=== PATIENT | female | born 1950 | race Caucasian/White ===

== ENCOUNTER 2019-09-22 09:02 | Outpatient (CLI) | payer MEDICARE, OTHER, SELFPAY ==
[2019-09-22 09:36] LABS: Anion Gap 15.1 (5-19); Blood Urea Nitrogen 21 mg/dL (8-23); Calcium 10.4 mg/dL (8.5-10.5); Carbon Dioxide 26 mmol/L (22-29); Chloride 96 mmol/L (98-107); Glomerular Filtration Rate 34.3 mL/min (90-130); Glucose 98 mg/dL (65-115); Osmolality Calculated 271 mOsm/kg (285-295); Potassium 5.1 mmol/L (3.5-5.1); Sodium 132 mmol/L (136-145)
== END 2019-09-22 09:03 | disposition home or self-care (01) ==
LOC: LAB 09:08
PROVIDERS: Family Provider Nurse Practitioner; PCP Nurse Practitioner; Visit Provider Internal Medicine
DX: Z94.1 Heart transplant status (principal)
CPT/HCPCS: 36415; 80048; 80197

== ENCOUNTER 2019-10-31 08:10 | Outpatient (CLI) | payer MEDICARE, OTHER, SELFPAY ==
[2019-10-31 08:58] LABS: Anion Gap 16.7 (5-19); Blood Urea Nitrogen 19 mg/dL (8-23); Calcium 11.4 mg/dL (8.5-10.5); Carbon Dioxide 28 mmol/L (22-29); Chloride 96 mmol/L (98-107); Glomerular Filtration Rate 49.1 mL/min (90-130); Glucose 92 mg/dL (65-115); Osmolality Calculated 278 mOsm/kg (285-295); Potassium 4.7 mmol/L (3.5-5.1); Sodium 136 mmol/L (136-145)
== END 2019-10-31 08:11 | disposition home or self-care (01) ==
LOC: LAB 08:17
PROVIDERS: Family Provider Nurse Practitioner; PCP Nurse Practitioner; Visit Provider Internal Medicine
DX: Z94.1 Heart transplant status (principal)
CPT/HCPCS: 36415; 80048; 80197

== ENCOUNTER 2019-11-24 09:07 | Outpatient (CLI) | payer MEDICARE, OTHER, SELFPAY ==
[2019-11-24 10:08] LABS: Basophils % 0.4 %; Eosinophils # 0.4 10^3/uL (0.0-0.8); Eosinophils % 5.9 %; Hematocrit 43.1 % (37.0-47.0); Hemoglobin 14.1 g/dL (11.5-15.3); Lymphocytes # 2.3 10^3/uL (0.8-4.8); Lymphocytes % 32.3 %; Mean Corpuscular HGB Conc 32.7 g/dL (30.0-36.0); Mean Corpuscular Hemoglobin 30.1 pg (28.0-34.0); Mean Corpuscular Volume 92.1 fL (81-99); Mean Platelet Volume 9.4 fL (7.4-10.4); Monocytes # 0.7 10^3/uL (0.2-0.9); Monocytes % 9.4 %; Neutrophils # 3.7 10^3/uL (1.8-7.7); Neutrophils % 51.7 %; Nucleated Red Blood Cells % 0 %; Platelet Count 262 10^3/cmm (130-400); Red Blood Count 4.68 10^6/uL (4.1-5.3); Red Cell Distribution Width 13.1 % (12.1-15.1); White Blood Count 7.2 10^3/uL (4.0-10.0)
[2019-11-24 10:20] LABS: Anion Gap 18.5 (5-19); Blood Urea Nitrogen 15 mg/dL (8-23); Calcium 10.2 mg/dL (8.5-10.5); Carbon Dioxide 25 mmol/L (22-29); Chloride 95 mmol/L (98-107); Glomerular Filtration Rate 44.4 mL/min (90-130); Glucose 103 mg/dL (65-115); Osmolality Calculated 275 mOsm/kg (285-295); Potassium 4.5 mmol/L (3.5-5.1); Sodium 134 mmol/L (136-145)
== END 2019-11-24 09:08 | disposition home or self-care (01) ==
LOC: LAB 09:13
PROVIDERS: Family Provider Nurse Practitioner; PCP Nurse Practitioner; Visit Provider Internal Medicine
DX: Z48.21 Encounter for aftercare following heart transplant (principal); Z94.1 Heart transplant status; Z79.899 Other long term (current) drug therapy; N28.9 Disorder of kidney and ureter, unspecified
CPT/HCPCS: 36415; 80048; 80197; 85025

== ENCOUNTER 2020-02-01 11:30 | Outpatient (CLI) | payer MEDICARE, OTHER, SELFPAY ==
--- NOTE | 2020-02-01 11:43 | MM_ITS ---
WS: [id number] BILATERAL DIGITAL SCREENING MAMMOGRAPHY WITH CAD CLINICAL INFORMATION: SCREENING HISTORY: Screening mammogram. No current complaints. COMPARISON: TECHNIQUE: Bilateral CC and MLO views. FINDINGS: The breasts are composed of heterogeneous fibroglandular density tissue, which can limit the detectio n of small underlying mass lesions. No suspicious mass, asymmetry, calcifications, or architectural d istortion. No evidence of malignancy. Lucent centered calcifications. MM/[id number] IMPRESSION: BI-RADS: 2-Benign FOLLOW UP: 1 Year Follow-up Recommend return to annual screening mammography.
== END 2020-02-01 11:31 | disposition home or self-care (01) ==
LOC: RADSHAW 11:35
PROVIDERS: PCP Nurse Practitioner; Visit Provider Nurse Practitioner
DX: Z12.31 Encounter for screening mammogram for malignant neoplasm of breast (principal)
CPT/HCPCS: 77067

== ENCOUNTER 2020-02-16 08:56 | Outpatient (CLI) | payer MEDICARE, OTHER, SELFPAY ==
[2020-02-16 09:29] LABS: Hemoglobin 14.7 g/dL (11.5-15.3); Mean Corpuscular Hemoglobin 29.8 pg (28.0-34.0); Mean Corpuscular Volume 93.1 fL (81-99); Platelet Count 231 10^3/cmm (130-400); Red Blood Count 4.94 10^6/uL (4.1-5.3); Red Cell Distribution Width 13.1 % (12.1-15.1); White Blood Count 5.9 10^3/uL (4.0-10.0)
[2020-02-16 09:51] LABS: Anion Gap 14.5 (5-19); Blood Urea Nitrogen 10 mg/dL (8-23); Calcium 9.3 mg/dL (8.5-10.5); Carbon Dioxide 27 mmol/L (22-29); Chloride 99 mmol/L (98-107); Glomerular Filtration Rate 54.8 mL/min (90-130); Glucose 96 mg/dL (65-115); Osmolality Calculated 278 mOsm/kg (285-295); Potassium 4.5 mmol/L (3.5-5.1); Sodium 136 mmol/L (136-145)
[2020-02-16 10:23] LABS: Absolute Eosinophils 0.5 10^3/cmm (0.0-0.7); Absolute Segmented Neutrophil 2.9 10/cmm (1.6-7.1); Band Neutrophils Absolute 0.1 10^3/cmm (0.0-1.2); Eosinophils 9 %; Lymphocytes 31 %; Monocytes Absolute 0.6 10^3/cmm (0.1-0.6); Segmented Neutrophils 49 %; Total Cells Counted 100 (0-100)
[2020-02-16 10:24] LABS: Platelet Estimate Normal (Normal)
== END 2020-02-16 08:57 | disposition home or self-care (01) ==
LOC: LAB 09:00
PROVIDERS: PCP Nurse Practitioner; Visit Provider Internal Medicine
DX: Z48.21 Encounter for aftercare following heart transplant (principal); Z94.1 Heart transplant status; Z79.899 Other long term (current) drug therapy; N28.9 Disorder of kidney and ureter, unspecified
CPT/HCPCS: 80048; 80197; 85007; 85027

== ENCOUNTER 2020-05-16 08:25 | Outpatient (CLI) | payer MEDICARE, OTHER, SELFPAY ==
[2020-05-16 08:53] LABS: Basophils % 0.6 %; Eosinophils # 0.4 10^3/uL (0.0-0.8); Eosinophils % 5.7 %; Hematocrit 42.6 % (37.0-47.0); Hemoglobin 13.5 g/dL (11.5-15.3); Lymphocytes # 2.4 10^3/uL (0.8-4.8); Lymphocytes % 37.4 %; Mean Corpuscular HGB Conc 31.7 g/dL (30.0-36.0); Mean Corpuscular Hemoglobin 29.9 pg (28.0-34.0); Mean Corpuscular Volume 94.2 fL (81-99); Mean Platelet Volume 9.1 fL (7.4-10.4); Monocytes # 0.6 10^3/uL (0.2-0.9); Monocytes % 8.7 %; Neutrophils # 2.98 10^3/uL (1.8-7.7); Neutrophils % 47.3 %; Nucleated Red Blood Cells % 0 %; Platelet Count 241 10^3/cmm (130-400); Red Blood Count 4.52 10^6/uL (4.1-5.3); Red Cell Distribution Width 13.6 % (12.1-15.1); White Blood Count 6.3 10^3/uL (4.0-10.0)
[2020-05-16 09:16] LABS: Anion Gap 14.4 (5-19); Blood Urea Nitrogen 12 mg/dL (8-23); Calcium 9.9 mg/dL (8.5-10.5); Carbon Dioxide 26 mmol/L (22-29); Chloride 99 mmol/L (98-107); Glucose 94 mg/dL (65-115); Osmolality Calculated 280 mOsm/kg (285-295); Potassium 4.4 mmol/L (3.5-5.1); Sodium 135 mmol/L (136-145)
== END 2020-05-16 08:26 | disposition home or self-care (01) ==
LOC: LAB 08:34
PROVIDERS: PCP Nurse Practitioner; Visit Provider Internal Medicine
DX: Z48.21 Encounter for aftercare following heart transplant (principal); Z94.1 Heart transplant status; Z79.899 Other long term (current) drug therapy; N28.9 Disorder of kidney and ureter, unspecified
CPT/HCPCS: 36415; 80048; 80197; 85025

== ENCOUNTER 2020-10-12 08:30 | Outpatient (CLI) | payer MEDICARE, OTHER, SELFPAY ==
[2020-10-12 09:13] LABS: Basophils # 0.1 10^3/uL (0.0-0.1); Basophils % 0.8 %; Eosinophils # 0.4 10^3/uL (0.0-0.8); Eosinophils % 6.7 %; Hematocrit 44.5 % (37.0-47.0); Hemoglobin 14.5 g/dL (11.5-15.3); Lymphocytes # 2.4 10^3/uL (0.8-4.8); Lymphocytes % 39.2 %; Mean Corpuscular HGB Conc 32.6 g/dL (30.0-36.0); Mean Corpuscular Volume 91.9 fL (81-99); Mean Platelet Volume 9.2 fL (7.4-10.4); Monocytes # 0.6 10^3/uL (0.2-0.9); Monocytes % 9.2 %; Neutrophils # 2.63 10^3/uL (1.8-7.7); Neutrophils % 43.9 %; Nucleated Red Blood Cells % 0 %; Platelet Count 237 10^3/cmm (130-400); Red Blood Count 4.84 10^6/uL (4.1-5.3); Red Cell Distribution Width 13.6 % (12.1-15.1)
[2020-10-12 09:16] LABS: Urine Appearance Clear (CLEAR); Urine Color Straw (Yellow)
[2020-10-12 09:17] LABS: Add Urine Culture? No; Bacteria Urine TRACE /hpf; Bilirubin Urine Neg (Negative); Blood Urine Neg (Negative); Glucose Urine UA Norm (Normal); Ketones Urine Negative (Negative); Leukocyte Esterase Urine Negative (Negative); Nitrate Urine Negative (Negative); Protein Urine Neg (Negative); RBC Urine 0-4 /hpf (0-2); Squamous Epithelial Cell Urine 0-4 /hpf (0-5); Urobilinogen Urine Norm (Negative); pH Urine 6.5 (5-7)
[2020-10-12 09:59] LABS: 25 Hydroxy Vitamin D 70 ng/mL (30-100); Alanine Aminotransferase 20 U/L (0-33); Albumin Level 4.5 g/dL (3.5-5.2); Alkaline Phosphatase 61 IU/L (35-105); Anion Gap 12.7 (5-19); Aspartate Amino Transferase 21 U/L (0-32); Blood Urea Nitrogen 20 mg/dL (8-23); Calcium 9.4 mg/dL (8.5-10.5); Carbon Dioxide 28 mmol/L (22-29); Chloride 94 mmol/L (98-107); Chol HDL Ratio 2.06 mg/dL (0.0-4.40); Cholesterol 177 mg/dL (0-200); Creatine Phosphokinase 36 U/L (26-192); Globulin 2.7 g/dL (1.3-4.6); Glucose 90 mg/dL (65-115); HDL Cholesterol 86 mg/dL (60-100); LDL Cholesterol Calculated 76 mg/dL (50-129); LDL HDL Ratio 0.88 RATIO (0.00-3.22); Osmolality Calculated 274 mOsm/kg (285-295); Potassium 3.7 mmol/L (3.5-5.1); Sodium 131 mmol/L (136-145); Total Bilirubin 0.4 mg/dL (0.15-1.2); Total Protein 7.2 g/dL (6.6-8.7); Triglycerides 76 mg/dL (0-150)
[2020-10-12 10:42] LABS: Estmated Average Glucose 94; Hemoglobin A1C 4.9 % (4.0-6.0)
== END 2020-10-12 08:31 | disposition home or self-care (01) ==
PROVIDERS: PCP Nurse Practitioner; Visit Provider Internal Medicine Cardiovascular Disease
DX: Z94.1 Heart transplant status (principal); Z79.899 Other long term (current) drug therapy
CPT/HCPCS: 80053; 80061; 80197; 81001; 82306; 82550; 83036; 85025

== ENCOUNTER 2020-10-23 08:19 | Outpatient (CLI) | payer MEDICARE, OTHER, SELFPAY ==
[2020-10-23 13:18] LABS: Blood Urea Nitrogen 16 mg/dL (8-23); Calcium 9.6 mg/dL (8.5-10.5); Carbon Dioxide 27 mmol/L (22-29); Chloride 95 mmol/L (98-107); Glucose 107 mg/dL (65-115); Osmolality Calculated 276 mOsm/kg (285-295); Sodium 132 mmol/L (136-145)
[2020-10-23 13:19] LABS: Anion Gap 14.3 (5-19); Potassium 4.3 mmol/L (3.5-5.1)
== END 2020-10-23 08:20 | disposition home or self-care (01) ==
LOC: LAB 08:22
PROVIDERS: PCP Nurse Practitioner; Visit Provider Internal Medicine
DX: Z94.1 Heart transplant status (principal)
CPT/HCPCS: 80048; 80197

== ENCOUNTER 2020-11-15 08:49 | Outpatient (CLI) | payer MEDICARE, OTHER, SELFPAY ==
[2020-11-15 09:32] LABS: Anion Gap 14.8 (5-19); Blood Urea Nitrogen 24 mg/dL (8-23); Calcium 9.2 mg/dL (8.5-10.5); Carbon Dioxide 27 mmol/L (22-29); Chloride 102 mmol/L (98-107); Glucose 92 mg/dL (65-115); Osmolality Calculated 292 mOsm/kg (285-295); Potassium 4.8 mmol/L (3.5-5.1); Sodium 139 mmol/L (136-145)
== END 2020-11-15 08:50 | disposition home or self-care (01) ==
PROVIDERS: PCP Nurse Practitioner; Visit Provider Internal Medicine Cardiovascular Disease
DX: Z48.298 Encounter for aftercare following other organ transplant (principal); Z94.1 Heart transplant status; Z79.899 Other long term (current) drug therapy
CPT/HCPCS: 36415; 80048; 80197

== ENCOUNTER 2021-02-22 08:25 | Outpatient (CLI) | payer OTHER, MEDICARE, SELFPAY ==
--- NOTE | 2021-02-22 08:33 | MM_ITS ---
WS: [id number] Bilateral screening digital mammogram, 02/22/2021 Clinical Data: SCREENING Comparison: 02/01/2020, 08/11/2018, 05/25/2017, 05/14/2016, 04/20/2015, 05/17/2013, 01/05/2009. Findings: The breast parenchymal pattern shows heterogeneous density No spiculated masses or clustered calcific ations are seen. There are no secondary signs of carcinoma. MM/[id number] Impression: 1. Negative bilateral mammogram unchanged. 2. Recommend annual screening mammograms. BIRADS: 1-Negative FOLLOW UP: 1 Year Follow-up The CAD fish checker was used.
== END 2021-02-22 08:26 | disposition home or self-care (01) ==
LOC: RADSHAW 08:29
PROVIDERS: PCP Nurse Practitioner; Visit Provider Nurse Practitioner
DX: Z12.31 Encounter for screening mammogram for malignant neoplasm of breast (principal)
CPT/HCPCS: 77067

== ENCOUNTER 2021-04-25 08:42 | Outpatient (CLI) | payer MEDICARE, OTHER, SELFPAY ==
[2021-04-25 09:14] LABS: Basophils # 0.1 10^3/uL (0.0-0.1); Basophils % 0.5 %; Eosinophils # 0.4 10^3/uL (0.0-0.8); Eosinophils % 4.6 %; Hematocrit 43.3 % (37.0-47.0); Hemoglobin 14.2 g/dL (11.5-15.3); Lymphocytes # 2.9 10^3/uL (0.8-4.8); Lymphocytes % 30.5 %; Mean Corpuscular HGB Conc 32.8 g/dL (30.0-36.0); Mean Corpuscular Hemoglobin 30.6 pg (28.0-34.0); Mean Corpuscular Volume 93.3 fl (81-99); Mean Platelet Volume 8.9 fL (7.4-10.4); Monocytes # 0.6 10^3/uL (0.2-0.9); Monocytes % 6.6 %; Neutrophils # 5.39 10^3/uL (1.8-7.7); Neutrophils % 57.4 %; Nucleated Red Blood Cells % 0 %; Platelet Count 239 10^3/cmm (130-400); Red Blood Count 4.64 10^6/uL (4.1-5.3); Red Cell Distribution Width 13.5 % (12.1-15.1); White Blood Count 9.4 10^3/uL (4.0-10.0)
[2021-04-25 09:38] LABS: Anion Gap 14.5 (5-19); Blood Urea Nitrogen 25 mg/dL (8-23); Calcium 9.6 mg/dL (8.5-10.5); Carbon Dioxide 26 mmol/L (22-29); Chloride 101 mmol/L (98-107); Glucose 102 mg/dL (65-115); Osmolality Calculated 289 mOsm/kg (285-295); Potassium 4.5 mmol/L (3.5-5.1); Sodium 137 mmol/L (136-145)
== END 2021-04-25 08:43 | disposition home or self-care (01) ==
PROVIDERS: PCP Nurse Practitioner; Visit Provider Internal Medicine
DX: Z94.1 Heart transplant status (principal)
CPT/HCPCS: 36415; 80048; 80197; 85025

== ENCOUNTER 2021-07-15 08:12 | Outpatient (CLI) | payer MEDICARE, OTHER, SELFPAY ==
[2021-07-15 08:34] LABS: Basophils # 0.1 10^3/uL (0.0-0.1); Basophils % 0.7 %; Eosinophils # 0.3 10^3/uL (0.0-0.8); Eosinophils % 4.2 %; Hematocrit 43.8 % (37.0-47.0); Hemoglobin 13.9 g/dL (11.5-15.3); Lymphocytes # 2.6 10^3/uL (0.8-4.8); Lymphocytes % 38.7 %; Mean Corpuscular HGB Conc 31.7 g/dL (30.0-36.0); Mean Corpuscular Hemoglobin 29.1 pg (28.0-34.0); Mean Corpuscular Volume 91.8 fl (81-99); Mean Platelet Volume 9.1 fL (7.4-10.4); Monocytes # 0.6 10^3/uL (0.2-0.9); Monocytes % 9.1 %; Neutrophils # 3.21 10^3/uL (1.8-7.7); Nucleated Red Blood Cells % 0 %; Platelet Count 250 10^3/cmm (130-400); Red Blood Count 4.77 10^6/uL (4.1-5.3); Red Cell Distribution Width 13.4 % (12.1-15.1); White Blood Count 6.8 10^3/uL (4.0-10.0)
[2021-07-15 08:55] LABS: Anion Gap 12.6 (5-19); Blood Urea Nitrogen 16 mg/dL (8-23); Calcium 9.3 mg/dL (8.5-10.5); Carbon Dioxide 28 mmol/L (22-29); Chloride 100 mmol/L (98-107); Glucose 88 mg/dL (65-115); Osmolality Calculated 283 mOsm/kg (285-295); Potassium 4.6 mmol/L (3.5-5.1); Sodium 136 mmol/L (136-145)
== END 2021-07-15 08:13 | disposition home or self-care (01) ==
LOC: LAB 08:15
PROVIDERS: PCP Nurse Practitioner; Visit Provider Internal Medicine
DX: Z48.21 Encounter for aftercare following heart transplant (principal); Z94.1 Heart transplant status; Z79.899 Other long term (current) drug therapy; N28.9 Disorder of kidney and ureter, unspecified
CPT/HCPCS: 36415; 80048; 80197; 85025

== ENCOUNTER 2021-10-07 08:31 | Outpatient (CLI) | payer MEDICARE, OTHER, SELFPAY ==
[2021-10-07 09:38] LABS: Basophils % 0.5 %; Eosinophils # 0.3 10^3/uL (0.0-0.8); Eosinophils % 5.5 %; Hematocrit 43.3 % (37.0-47.0); Lymphocytes # 1.9 10^3/uL (0.8-4.8); Lymphocytes % 32.2 %; Mean Corpuscular HGB Conc 32.3 g/dL (30.0-36.0); Mean Corpuscular Volume 89.8 fl (81-99); Mean Platelet Volume 8.8 fL (7.4-10.4); Monocytes # 0.6 10^3/uL (0.2-0.9); Monocytes % 9.7 %; Neutrophils # 3.11 10^3/uL (1.8-7.7); Neutrophils % 51.8 %; Nucleated Red Blood Cells % 0 %; Platelet Count 252 10^3/cmm (130-400); Red Blood Count 4.82 10^6/uL (4.1-5.3); Red Cell Distribution Width 13.2 % (12.1-15.1)
[2021-10-07 10:11] LABS: Alanine Aminotransferase 18 U/L (0-33); Albumin Level 4.5 g/dL (3.5-5.2); Alkaline Phosphatase 89 IU/L (35-105); Aspartate Amino Transferase 20 U/L (0-32); Blood Urea Nitrogen 15 mg/dL (8-23); Calcium 10.4 mg/dL (8.5-10.5); Carbon Dioxide 27 mmol/L (22-29); Chloride 94 mmol/L (98-107); Chol HDL Ratio 2.43 mg/dL (0.0-4.40); Cholesterol 194 mg/dL (0-200); Creatine Phosphokinase 22 U/L (26-192); Globulin 2.4 g/dL (1.3-4.6); Glucose 93 mg/dL (65-115); HDL Cholesterol 80 mg/dL (60-100); LDL Cholesterol Calculated 95 mg/dL (50-129); LDL HDL Ratio 1.19 RATIO (0.00-3.22); Osmolality Calculated 275 mOsm/kg (285-295); Sodium 132 mmol/L (136-145); Total Bilirubin 0.3 mg/dL (0.15-1.2); Total Protein 6.9 g/dL (6.6-8.7); Triglycerides 97 mg/dL (0-150)
[2021-10-07 10:19] LABS: Bilirubin Urine Neg (Negative); Blood Urine Neg (Negative); Glucose Urine UA Norm (Normal); Ketones Urine Negative (Negative); Leukocyte Esterase Urine Negative (Negative); Nitrate Urine Negative (Negative); Protein Urine Neg (Negative); Urine Appearance Clear (CLEAR); Urine Color Yellow (Yellow); Urobilinogen Urine Norm (Negative); WBC Urine 0-4 /hpf (0-5); pH Urine 7 (5-7)
[2021-10-07 10:20] LABS: Estmated Average Glucose 105; Hemoglobin A1C 5.3 % (4.0-6.0)
[2021-10-07 10:20] LABS: Add Urine Culture? No; Bacteria Urine 1+ /hpf
[2021-10-07 10:22] LABS: 25 Hydroxy Vitamin D 66 ng/mL (30-100)
== END 2021-10-07 08:32 | disposition home or self-care (01) ==
LOC: LAB 09:02
PROVIDERS: PCP Nurse Practitioner; Visit Provider Internal Medicine Cardiovascular Disease
DX: Z94.1 Heart transplant status (principal); Z79.899 Other long term (current) drug therapy
CPT/HCPCS: 36415; 80053; 80061; 80197; 81001; 82306; 82550; 83036; 85025

== ENCOUNTER 2021-12-02 14:21 | Outpatient (CLI) | payer OTHER, SELFPAY ==
--- NOTE | 2021-12-02 14:29 | XR_ITS ---
WS: [id number] DEXA (DUAL ENERGY X-RAY ABSORPTIOMETRY) Bone mineral density was performed using a Flix[employer] machine. HISTORY: SCREENING COMPARISON: None available. Lumbar spine BMD (L1-L4): 1.227 g/cm2 T score: 0.4 Z score: 2.1 Total hip BMD: Left: 0.660 g/cm2. T score: -2.8 Z score: -1.2 Right: 0.895 g/cm2. T score: -0.9 Z score: 0.7 10 year probability of a major osteoporotic fracture is 34%. XR/XR DEXA axial skeleton* [id number] IMPRESSION: OSTEOPOROSIS based upon the WHO classification for females. More significant changes of osteoporosis in the LEFT hip as compared to the RIG HT.
== END 2021-12-02 14:22 | disposition home or self-care (01) ==
LOC: RAD 14:26
PROVIDERS: PCP Nurse Practitioner; Visit Provider Nurse Practitioner
DX: Z13.820 Encounter for screening for osteoporosis (principal); M81.0 Age-related osteoporosis without current pathological fracture
CPT/HCPCS: 77080

== ENCOUNTER 2021-12-17 06:09 | Emergency (ER) | payer OTHER, MEDICARE, SELFPAY ==
[2021-12-17 06:10] VITALS: BP 162/98; PULSE 95; RESP 18; TEMP 37.7; O2SAT 96; BMI 22.4
--- NOTE | 2021-12-17 06:32 | W.ED.SOB ---
HPI - SOB/Dyspnea General: Chief Complaint: Shortness of Breath/Dyspnea Stated Complaint: SOB Time Seen by Provider: 12/17/21 06:31 Source: patient Mode of arrival: ambulatory Limitations: no limitations History of Present Illness: HPI Narrative: 71-year-old female presents to the emergency room with complaints of shortness of breath. She had noticed worsening orthopnea through the night. She usually is able to sleep laying relatively flat via single pillow last night she had to sit up to catch her breath she is not normally on oxygen. EMS reported that on room air when they arrived she was at 94%. She reported her blood pressure was elevated last night at home as well. She has a low-grade temp on arrival here. She has not had a productive cough. She has been nauseous but there has not been any vomiting or diarrhea. 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) Associated symptoms: Reports chest congestion; Deny abdominal pain, chest pain, cough, diaphoresis, dizziness, extremity pain, fever(s), hemoptysis, lightheadedness, myalgias, nausea, orthopnea, palpitations, paresthesias, polydipsia, polyuria, rash, sense of impending doom, syncope or vomiting Treatment prior to arrival: oxygen Review of Systems Const: Denies: fever(s), chills or diaphoresis ENMT: Denies: throat pain, ear or mastoid pain, nasal discharge or nasal congestion Card: Denies: chest pain, palpitations, irregular heart rhythm, edema, lightheadedness, syncope or orthopnea Resp: Reports: dyspnea and chest congestion; Denies: productive cough, non-productive cough, wheezing or hemoptysis GI: Denies: abdominal pain, nausea or vomiting : Denies: flank pain, difficulty voiding, dysuria, urinary frequency or urinary urgency Musc: Denies: neck pain, back pain or extremity pain Skin/Breast: Denies: rash or pruritus Neuro: Denies: headache(s) or dizziness Endo: Denies: polyuria or polydipsia PFS ED PFSH: Medical History Cardiomyopathy Viral endocarditis Surgical History History of heart transplant Social History Smoking and tobacco status: former smoker Alcohol intake: never Physical Exam Const: COMMON NORMALS: no acute distress GENERAL APPEARANCE: cooperative and comfortable ORIENTATION/CONSCIOUSNESS: Yes awake, Yes oriented to person, Yes oriented to place and Yes oriented to time HENMT: COMMON NORMALS: normocephalic and atraumatic HEAD & SCALP: normocephalic and atraumatic Neck/C-Spine: COMMON NORMALS: no JVD Resp: COMMON NORMALS: normal respiratory effort, No retractions, No use of accessory muscles and clear to auscultation bilaterally AUSCULTATION: clear to auscultation bilaterally Cardio: COMMON NORMALS: no JVD, regular rate, regular rhythm and No murmurs present (Cardio) RATE: regular rate RHYTHM: regular rhythm GI: COMMON NORMALS: Soft to palpation and No hepatosplenomegaly present AUSCULTATION: Yes normoactive bowel sounds PALPATION: Yes Soft to palpation, No Tenderness to palpation present (GI), No Guarding due to palpation present (GI) and Yes No hepatosplenomegaly present Extremity: COMMON NORMALS: normal to inspection, capillary refill normal, no clubbing, cyanosis or edema, no calf tenderness and no pedal edema Neuro: SENSORIUM/ORIENTATION: Yes oriented to person, Yes oriented to place and Yes oriented to time Skin: COMMON NORMALS: no rashes or lesions noted GENERAL SKIN EXAM: no rashes or lesions noted Course Vital Signs: Vital signs: Vital Signs Temperature 99.8 F H 12/17/21 06:10 Pulse Rate 91 12/17/21 11:25 Respiratory Rate 21 H 12/17/21 11:25 Blood Pressure 122/76 12/17/21 11:25 Pulse Oximetry 92 12/17/21 11:25 MDM - SOB/Dyspnea Medical Decision Making Patient is feeling better chest x-ray does not show any acute infiltrates. She does have a low-grade fever and a slightly elevated white count. We will get a go and discharge her home blood cultures were taken and we will start her on Levaquin for now till blood cultures get back continue her other medications we made several attempts to try to contact the transplant clinic but did not hear back from them. She did feel better after moderate diuresis here in the ER if she has any worsening or change symptoms or increased fever return to the emergency room. Medical Records I reviewed the patient's medical records. Lab Data I reviewed the patient's lab results. : 12/17/21 06:15 12/17/21 06:15 Labs/Radiology: Radiology Impressions Chest X-Ray 12/17/21 06:42 IMPRESSION: Small right pleural effusion with right basilar atelectasis. Laboratory Results WBC 14.1 10^3/uL (4.0-10.0) H 12/17/21 06:15 RBC 4.78 10^6/uL (4.1-5.3) 12/17/21 06:15 Hgb 13.8 g/dL (11.5-15.3) 12/17/21 06:15 Hct 42.8 % (37.0-47.0) 12/17/21 06:15 MCV 89.5 fl (81-99) 12/17/21 06:15 MCH 28.9 pg (28.0-34.0) 12/17/21 06:15 MCHC 32.2 g/dL (30.0-36.0) 12/17/21 06:15 RDW 13.9 % (12.1-15.1) 12/17/21 06:15 Plt Count 242 10^3/cmm (130-400) 12/17/21 06:15 MPV 9.5 fL (7.4-10.4) 12/17/21 06:15 Neut % (Auto) 88.7 % 12/17/21 06:15 Lymph % (Auto) 5.4 % 12/17/21 06:15 [place] % (Auto) 5.0 % 12/17/21 06:15 Eos % (Auto) 0.4 % 12/17/21 06:15 Baso % (Auto) 0.1 % 12/17/21 06:15 Neut # (Auto) 12.52 10^3/uL (1.8-7.7) H 12/17/21 06:15 Lymph # (Auto) 0.8 10^3/uL (0.8-4.8) 12/17/21 06:15 [place] # (Auto) 0.7 10^3/uL (0.2-0.9) 12/17/21 06:15 Eos # (Auto) 0.1 10^3/uL (0.0-0.8) 12/17/21 06:15 Baso # (Auto) 0.0 10^3/uL (0.0-0.1) 12/17/21 06:15 Nucleated RBC % (auto) 0 % 12/17/21 06:15 Nucleated RBCs # 0.0 /100WBC 12/17/21 06:15 Sodium 138 mmol/L (136-145) 12/17/21 06:15 Potassium 4.1 mmol/L (3.5-5.1) 12/17/21 06:15 Chloride 101 mmol/L (98-107) 12/17/21 06:15 Carbon Dioxide 27 mmol/L (22-29) 12/17/21 06:15 Anion Gap 14.1 (5-19) 12/17/21 06:15 BUN 21 mg/dL (8-23) 12/17/21 06:15 Creatinine 1.1 mg/dL (0.5-0.9) H 12/17/21 06:15 GFR Calculation Not Reportable 12/17/21 06:15 Glucose 121 mg/dL (65-115) H 12/17/21 06:15 Calculated Osmolality 290 mOsm/kg (285-295) 12/17/21 06:15 Calcium 9.1 mg/dL (8.5-10.5) 12/17/21 06:15 Total Bilirubin 0.3 mg/dL (0.15-1.2) 12/17/21 06:15 AST 20 U/L (0-32) 12/17/21 06:15 ALT 23 U/L (0-33) 12/17/21 06:15 Alkaline Phosphatase 67 IU/L (35-105) 12/17/21 06:15 Troponin T Baseline 10 ng/L (0-10) 12/17/21 06:15 Troponin T 120 Minute 8.83 ng/L (0-10) 12/17/21 08:06 Delta Troponin T -1.17 ABS# (0-10) L 12/17/21 08:06 NT-Pro-B Natriuret Pep 1630 pg/mL (0-125) H 12/17/21 06:15 Total Protein 6.4 g/dL (6.6-8.7) L 12/17/21 06:15 Albumin 4.5 g/dL (3.5-5.2) 12/17/21 06:15 Globulin 1.9 g/dL (1.3-4.6) 12/17/21 06:15 Discharge Plan Discharge Patient Disposition: Home Clinical Impression: Dyspnea Condition: Stable Prescriptions: New levofloxacin 750 mg tablet 750 mg PO DAILY 7 Days Qty: 7 0RF Discharge Orders: Discharge ED (Routine); Ordered 12/17/21 Ordered By: Truong Galarza Referrals: Chiquita Farley FNP [Primary Care Provider] - Discharge Diet: Usual diet Discharge Activity: Increase activity as tolerated Patient Instructions: Opioid Safety Activity Restrictions/Additional Instructions: Follow-up with the transplant team in [place] as soon as you are able by phone. Coding Level of Care Code ED Packing Machine Feeder for Yuniel Fwd Exam Comprehensive
--- NOTE | 2021-12-17 06:42 | ECG_ITS ---
[facility] Test Date: 2021-12-17 Pat Name: Fariba Marsh Department: Room: Gender: Female Stave Saw Operator: : 1950 Requested By: Truong Branch Order Number: [id number] Shona MD: Crescencio Olivo M.D. Measurements Intervals [place] Rate: 99 P: 72 FL: 155 QRS: 37 QRSD: 90 T: 84 QT: 319 QTc: 410 Interpretive Statements SINUS RHYTHM NONSPECIFIC ST & T-WAVE ABNORMALITY No previous ECG available for comparison Electronically Signed On 12-17-2021 17:13:12 CDT by Crescencio Olivo M.D. [id number] f
--- NOTE | 2021-12-17 06:42 | XRR_ITS ---
PROCEDURE INFORMATION: Exam: XR Chest Exam date and time: 12/17/2021 6:48 AM Age: 71 years old Clinical indication: Dyspnea; Prior surgery; Surgery date: 6+ months; Surgery type: Heart; Patient HX: SOB since last pm; Additional info: Dyspnea/cough TECHNIQUE: Imaging protocol: XR of the chest. Views: 1 view. COMPARISON: No relevant prior studies available. FINDINGS: Lungs: Subsegmental atelectasis in the right base. Otherwise lungs are clear. Pleural spaces: Small right pleural effusion. No pneumothorax. Heart/Mediastinum: Unremarkable. No cardiomegaly. Bones/joints: Median sternotomy. No acute bony abnormality. XR/XR chest 1V portable [id number] IMPRESSION: Small right pleural effusion with right basilar atelectasis.
[2021-12-17 07:07] LABS: Basophils % 0.1 %; Eosinophils # 0.1 10^3/uL (0.0-0.8); Eosinophils % 0.4 %; Hematocrit 42.8 % (37.0-47.0); Hemoglobin 13.8 g/dL (11.5-15.3); Lymphocytes # 0.8 10^3/uL (0.8-4.8); Lymphocytes % 5.4 %; Mean Corpuscular HGB Conc 32.2 g/dL (30.0-36.0); Mean Corpuscular Hemoglobin 28.9 pg (28.0-34.0); Mean Corpuscular Volume 89.5 fl (81-99); Mean Platelet Volume 9.5 fL (7.4-10.4); Monocytes # 0.7 10^3/uL (0.2-0.9); Neutrophils # 12.52 10^3/uL (1.8-7.7); Neutrophils % 88.7 %; Nucleated Red Blood Cells % 0 %; Platelet Count 242 10^3/cmm (130-400); Red Blood Count 4.78 10^6/uL (4.1-5.3); Red Cell Distribution Width 13.9 % (12.1-15.1); White Blood Count 14.1 10^3/uL (4.0-10.0)
[2021-12-17 07:16] LABS: Troponin(5th) Baseline 10 ng/L (0-10)
--- NOTE | 2021-12-17 07:19 | PC.NURSE ---
placed lunch order with kitchen.
--- NOTE | 2021-12-17 07:19 | PC.NURSE ---
Patient in room, cooperative and calm at this time. Patient eating breakfast.
[2021-12-17 07:26] LABS: Alanine Aminotransferase 23 U/L (0-33); Albumin Level 4.5 g/dL (3.5-5.2); Alkaline Phosphatase 67 IU/L (35-105); Anion Gap 14.1 (5-19); Aspartate Amino Transferase 20 U/L (0-32); Blood Urea Nitrogen 21 mg/dL (8-23); Calcium 9.1 mg/dL (8.5-10.5); Carbon Dioxide 27 mmol/L (22-29); Chloride 101 mmol/L (98-107); Globulin 1.9 g/dL (1.3-4.6); Glucose 121 mg/dL (65-115); NT Pro B Type Natriuretic Pept 1630 pg/mL (0-125); Osmolality Calculated 290 mOsm/kg (285-295); Potassium 4.1 mmol/L (3.5-5.1); Sodium 138 mmol/L (136-145); Total Bilirubin 0.3 mg/dL (0.15-1.2); Total Protein 6.4 g/dL (6.6-8.7)
--- NOTE | 2021-12-17 07:26 | PC.NURSE ---
Patient in bed, awake, no distress noted, patient provided with warm blankets.
[2021-12-17 07:28] VITALS: BP 135/83; PULSE 97; RESP 26; O2SAT 93
[2021-12-17 08:31] LABS: Troponin 5 2HR 8.83 ng/L (0-10)
--- NOTE | 2021-12-17 08:42 | ECG_ITS ---
[facility] Test Date: 2021-12-17 Pat Name: Fariba Marsh Department: Room: Gender: Female Presser Cotton Ginning: : 1950 Requested By: Truong Branch Order Number: [id number] Reading MD: Crescencio Olivo M.D. Measurements Intervals [place] Rate: 92 P: 62 LA: 158 QRS: 43 QRSD: 90 T: 86 QT: 335 QTc: 415 Interpretive Statements SINUS RHYTHM NONSPECIFIC ST & T-WAVE ABNORMALITY Compared to ECG 12/17/2021 06:17:33 No significant changes Electronically Signed On 12-17-2021 17:16:26 CDT by Crescencio Olivo M.D. [id number]
[2021-12-17] MEDS: FUROsemide 10 mg/mL SDV 4mL 40 MG IVP (08:56)
[2021-12-17 09:39] VITALS: BP 121/78; RESP 24; O2SAT 92
[2021-12-17 10:06] VITALS: BP 116/89; PULSE 97; RESP 31; O2SAT 93
--- NOTE | 2021-12-17 10:06 | PC.NURSE ---
Patient ambulated to bathroom and back to room 12 with steady gait.
[2021-12-17 10:59] LABS: Troponin 5 2HR Delta -1.17 ABS# (0-10)
[2021-12-17 11:25] VITALS: BP 122/76; PULSE 91; RESP 21; O2SAT 92
[2021-12-17 12:36] LABS: Troponin 5 6HR 9.49 ng/L (0-10)
[2021-12-17 12:38] VITALS: BP 111/79; PULSE 95; RESP 18; O2SAT 97
[2021-12-17 12:57] LABS: Troponin 5 6HR Delta -0.51 ng/L (0-12)
== END 2021-12-17 12:30 | disposition home or self-care (01) ==
PROVIDERS: Emergency Provider Family Medicine; PCP Nurse Practitioner
DX: R06.00 Dyspnea, unspecified (principal); J90 Pleural effusion, not elsewhere classified; J44.9 Chronic obstructive pulmonary disease, unspecified; I42.9 Cardiomyopathy, unspecified; I38 Endocarditis, valve unspecified; Z94.1 Heart transplant status; Z87.891 Personal history of nicotine dependence
CPT/HCPCS: 36415; 71045; 80053; 83880; 84484; 85025; 87040; 93005; 96374; 99284; J1940

== ENCOUNTER 2021-12-23 08:36 | Outpatient (CLI) | payer MEDICARE, OTHER, SELFPAY ==
[2021-12-23 09:29] LABS: Basophils % 0.5 %; Eosinophils # 0.3 10^3/uL (0.0-0.8); Eosinophils % 4.2 %; Hematocrit 42.5 % (37.0-47.0); Hemoglobin 14.1 g/dL (11.5-15.3); Lymphocytes # 2.3 10^3/uL (0.8-4.8); Lymphocytes % 30.3 %; Mean Corpuscular HGB Conc 33.2 g/dL (30.0-36.0); Mean Corpuscular Hemoglobin 29.4 pg (28.0-34.0); Mean Corpuscular Volume 88.5 fl (81-99); Mean Platelet Volume 9.1 fL (7.4-10.4); Monocytes # 0.6 10^3/uL (0.2-0.9); Monocytes % 8.4 %; Neutrophils # 4.24 10^3/uL (1.8-7.7); Neutrophils % 56.1 %; Nucleated Red Blood Cells % 0 %; Platelet Count 254 10^3/cmm (130-400); Red Cell Distribution Width 13.8 % (12.1-15.1); White Blood Count 7.6 10^3/uL (4.0-10.0)
[2021-12-23 09:43] LABS: Anion Gap 14.6 (5-19); Blood Urea Nitrogen 15 mg/dL (8-23); Calcium 10.2 mg/dL (8.5-10.5); Carbon Dioxide 28 mmol/L (22-29); Chloride 101 mmol/L (98-107); Glucose 108 mg/dL (65-115); Osmolality Calculated 289 mOsm/kg (285-295); Potassium 4.6 mmol/L (3.5-5.1); Sodium 139 mmol/L (136-145)
== END 2021-12-23 08:37 | disposition home or self-care (01) ==
LOC: LAB 08:39
PROVIDERS: PCP Nurse Practitioner; Visit Provider Internal Medicine Cardiovascular Disease
DX: N28.9 Disorder of kidney and ureter, unspecified (principal); Z94.1 Heart transplant status; Z79.899 Other long term (current) drug therapy; Z48.21 Encounter for aftercare following heart transplant
CPT/HCPCS: 80048; 80197; 85025

== ENCOUNTER 2022-03-05 09:06 | Outpatient (CLI) | payer MEDICARE, OTHER, SELFPAY ==
--- NOTE | 2022-03-05 09:17 | MM_ITS ---
WS: [id number] SCREENING DIGITAL BREAST TOMOSYNTHESIS MAMMOGRAM WITH CAD HISTORY: SCREENING COMPARISON: 02/23/2020, 02/01/2020 Bilateral CC and MLO with tomosynthesis views submitted. Synthetic mammography reviewed. Computer aid ed detection analyzed. Breast composition: There are scattered areas of fibroglandular density. No suspicious masses, microc alcifications or architectural distortion. Benign coarse calcifications in each breast. MM/[place] [id number] IMPRESSION: BI-RADS: 2-Benign FOLLOW UP: 1 Year Follow-up
== END 2022-03-05 09:07 | disposition home or self-care (01) ==
LOC: RAD 09:06
PROVIDERS: PCP Nurse Practitioner; Visit Provider Nurse Practitioner
DX: Z12.31 Encounter for screening mammogram for malignant neoplasm of breast (principal)
CPT/HCPCS: 77063; 77067

== ENCOUNTER 2022-04-28 07:57 | Outpatient (CLI) | payer MEDICARE, OTHER, SELFPAY ==
[2022-04-28 08:32] LABS: Basophils % 0.4 %; Eosinophils # 0.4 10^3/uL (0.0-0.8); Eosinophils % 3.8 %; Hematocrit 42.7 % (37.0-47.0); Hemoglobin 13.6 g/dL (11.5-15.3); Lymphocytes # 1.5 10^3/uL (0.8-4.8); Lymphocytes % 16.3 %; Mean Corpuscular HGB Conc 31.9 g/dL (30.0-36.0); Mean Corpuscular Hemoglobin 29.2 pg (28.0-34.0); Mean Corpuscular Volume 91.6 fl (81-99); Mean Platelet Volume 9.4 fL (7.4-10.4); Monocytes # 0.7 10^3/uL (0.2-0.9); Neutrophils # 6.71 10^3/uL (1.8-7.7); Neutrophils % 72.2 %; Nucleated Red Blood Cells % 0 %; Platelet Count 223 10^3/cmm (130-400); Red Blood Count 4.66 10^6/uL (4.1-5.3); Red Cell Distribution Width 13.5 % (12.1-15.1); White Blood Count 9.3 10^3/uL (4.0-10.0)
[2022-04-28 08:58] LABS: Anion Gap 13.8 (5-19); Blood Urea Nitrogen 18 mg/dL (8-23); Calcium 9.9 mg/dL (8.5-10.5); Carbon Dioxide 29 mmol/L (22-29); Chloride 105 mmol/L (98-107); Glucose 124 mg/dL (65-115); Osmolality Calculated 299 mOsm/kg (285-295); Potassium 4.8 mmol/L (3.5-5.1); Sodium 143 mmol/L (136-145)
== END 2022-04-28 07:58 | disposition home or self-care (01) ==
LOC: LAB 08:00
PROVIDERS: PCP Nurse Practitioner; Visit Provider Internal Medicine Cardiovascular Disease
DX: Z94.1 Heart transplant status (principal); Z48.21 Encounter for aftercare following heart transplant; Z79.899 Other long term (current) drug therapy; N28.9 Disorder of kidney and ureter, unspecified
CPT/HCPCS: 36415; 80048; 80197; 85025

== ENCOUNTER → 2022-05-18 12:46 | Outpatient (BNVA) | payer MEDICARE, OTHER, SELFPAY | PROVIDERS: PCP Nurse Practitioner | DX: N39.0 Urinary tract infection, site not specified (principal) | CPT/HCPCS: 81000 ==

== ENCOUNTER 2022-05-23 14:35 | Emergency (ER) | payer OTHER, SELFPAY ==
[2022-05-23 14:54] VITALS: BP 132/94; PULSE 90; RESP 17; O2SAT 100
--- NOTE | 2022-05-23 15:31 | ED_ITS ---
HPI - Female Genitourinary General: Chief complaint: Urogenital-Female Stated complaint: [facility] sent for UTI Time Seen by Provider: 05/23/22 14:49 Source: patient Mode of arrival: ambulatory History of Present Illness: 22-year-old female who presents to the emergency room with complaints of urinary tract symptoms. 5 days ago she was treated in urgent care and started on cefdinir she developed hematuria after that and was switched to Bactrim and a urine culture was done. Urine culture grew out ESBL but colony count is only 25-50,000. She still has a little bit of dysuria she is not running a fever. No vomiting or diarrhea no flank pain MD elicited complaint: dysuria Pertinent past history: recurrent UTIs Onset (ago): day(s) Location of symptoms: urethra Severity: moderate Quality of pain: cramping, dull and aching Consistency: intermittent Vaginal discharge: none Vaginal bleeding: none Urinary symptoms: Dysuria Exacerbating factors: urination Relieving factors: none Associated symptoms: Deny abdominal pain, short of breath, fevers/chills, headache(s), nausea, rash, seizures, syncope, vaginal bleeding, vaginal discharge or weakness Treatment prior to arrival: none Review of Systems Const: Denies: fever(s), chills, body aches, change in appetite, fatigue or malaise ENMT: Denies: throat pain, ear or mastoid pain, nasal discharge or nasal congestion Card: Denies: chest pain or syncope Resp: Denies: dyspnea, productive cough or non-productive cough GI: Denies: abdominal pain, nausea or vomiting : Reports: dysuria, urinary frequency and urinary urgency; Denies: flank pain or vaginal discharge Skin/Breast: Denies: rash or pruritus Neuro: Denies: headache(s) PFS ED PFSH: Medical History Cardiomyopathy Viral endocarditis Surgical History History of heart transplant Family History Mother , at age 93 Cancer colon Hypertension Father , at age 47 CAD (coronary artery disease) Social History Smoking and tobacco status: former smoker Alcohol intake: never Adopted: No Household members: spouse Marital status: Current occupational status: retired History of recent travel: No Physical Exam Const: COMMON NORMALS: no acute distress GENERAL APPEARANCE: cooperative and comfortable ORIENTATION/CONSCIOUSNESS: Yes awake, Yes oriented to person, Yes oriented to place and Yes oriented to time HENMT: COMMON NORMALS: normocephalic, atraumatic and hearing grossly normal bilaterally HEAD & SCALP: normocephalic and atraumatic Resp: COMMON NORMALS: normal respiratory effort, No retractions, No use of accessory muscles and clear to auscultation bilaterally AUSCULTATION: clear to auscultation bilaterally Cardio: COMMON NORMALS: regular rate, regular rhythm and No murmurs present (Cardio) RATE: regular rate RHYTHM: regular rhythm GI: COMMON NORMALS: Soft to palpation and No hepatosplenomegaly present AUSCULTATION: Yes normoactive bowel sounds PALPATION: Yes Soft to palpation, No Tenderness to palpation present (GI), No Guarding due to palpation present (GI) and Yes No hepatosplenomegaly present : COMMON NORMALS: Yes no CVA tenderness BLADDER/KIDNEY EXAM: Yes no CVA tenderness SPECULUM EXAM - VAGINA: No vaginal bleeding OB/EXTERNAL & SPECULUM: No vaginal bleeding Back/Pelvis: COMMON NORMALS: no CVA tenderness Extremity: COMMON NORMALS: normal to inspection, capillary refill normal, no clubbing, cyanosis or edema, no calf tenderness and no pedal edema Neuro: SENSORIUM/ORIENTATION: Yes oriented to person, Yes oriented to place and Yes oriented to time Skin: COMMON NORMALS: no rashes or lesions noted GENERAL SKIN EXAM: no rashes or lesions noted Course Vital Signs: Vital signs: Vital Signs Pulse Rate 90 05/23/22 18:23 Respiratory Rate 17 05/23/22 14:54 Blood Pressure 118/82 05/23/22 18:23 Pulse Oximetry 98 05/23/22 18:23 Oxygen Delivery Me thod 05/23/22 16:24 MDM - Female Medical Decision Making [facility]. Patient does have ESBL Klebsiella. It is sensitive to Zosyn ertapenem and imipenem. The most logical choice would be a ertapenem as it is once daily. Place an IV give her the first dose today we will have her come back to do outpatient dosing through the ER for the next 2 days on Thursday in 3 days we will have PICC or midline placed and then continue the outpatient IV antibiotics through outpatient GI Lab. I did discuss with Dr. Lester he helped formulate the plan and agrees with it. Discussed with the patient answered all of her questions she is agreeable to the plan. business analyst manager also make arrangements for urologic follow-up with Dr. Lester sometime next week. Dr. Lester will take care of of any advanced imaging that might need to be done. Medical Records I reviewed the patient's medical records. Lab Data I reviewed the patient's lab results. : 05/23/22 15:45 05/23/22 15:45 Laboratory Results WBC 8.1 10^3/uL (4.0-10.0) 05/23/22 15:45 RBC 4.29 10^6/uL (4.1-5.3) 05/23/22 15:45 Hgb 12.8 g/dL (11.5-15.3) 05/23/22 15:45 Hct 37.9 % (37.0-47.0) 05/23/22 15:45 MCV 88.3 fl (81-99) 05/23/22 15:45 MCH 29.8 pg (28.0-34.0) 05/23/22 15:45 MCHC 33.8 g/dL (30.0-36.0) 05/23/22 15:45 RDW 13.2 % (12.1-15.1) 05/23/22 15:45 Plt Count 252 10^3/cmm (130-400) 05/23/22 15:45 MPV 9.1 fL (7.4-10.4) 05/23/22 15:45 Neut % (Auto) 61.8 % 05/23/22 15:45 Lymph % (Auto) 27.6 % 05/23/22 15:45 [place] % (Auto) 7.9 % 05/23/22 15:45 Eos % (Auto) 1.8 % 05/23/22 15:45 Baso % (Auto) 0.4 % 05/23/22 15:45 Neut # (Auto) 5.03 10^3/uL (1.8-7.7) 05/23/22 15:45 Lymph # (Auto) 2.3 10^3/uL (0.8-4.8) 05/23/22 15:45 [place] # (Auto) 0.6 10^3/uL (0.2-0.9) 05/23/22 15:45 Eos # (Auto) 0.2 10^3/uL (0.0-0.8) 05/23/22 15:45 Baso # (Auto) 0.0 10^3/uL (0.0-0.1) 05/23/22 15:45 Nucleated RBC % (auto) 0 % 05/23/22 15:45 Nucleated RBCs # 0.0 /100WBC 05/23/22 15:45 Sodium 129 mmol/L (136-145) L 05/23/22 15:45 Potassium 4.8 mmol/L (3.5-5.1) 05/23/22 15:45 Chloride 94 mmol/L (98-107) L 05/23/22 15:45 Carbon Dioxide 25 mmol/L (22-29) 05/23/22 15:45 Anion Gap 14.8 (5-19) 05/23/22 15:45 BUN 19 mg/dL (8-23) 05/23/22 15:45 Creatinine 1.4 mg/dL (0.5-0.9) H 05/23/22 15:45 GFR Calculation Not Reportable 05/23/22 15:45 Glucose 95 mg/dL (65-115) 05/23/22 15:45 Calculated Osmolality 270 mOsm/kg (285-295) L 05/23/22 15:45 Calcium 9.9 mg/dL (8.5-10.5) 05/23/22 15:45 Urine Color Yellow (Yellow) 05/23/22 14:50 Urine Appearance Hazy (CLEAR) A 05/23/22 14:50 Urine pH 6 (5-7) 05/23/22 14:50 Ur Specific [place] 1.010 (1.005-1.030) 05/23/22 14:50 Urine Protein Neg (Negative) 05/23/22 14:50 Urine Glucose (UA) Norm (Normal) 05/23/22 14:50 Urine Ketones 1+ (Negative) H 05/23/22 14:50 Urine Blood 2+ (Negative) H 05/23/22 14:50 Urine Nitrate Negative (Negative) 05/23/22 14:50 Urine Bilirubin Neg (Negative) 05/23/22 14:50 Urine Urobilinogen Norm mg/dL (Negative) 05/23/22 14:50 Ur Leukocyte Esterase 2+ (Negative) H 05/23/22 14:50 Urine RBC None /hpf (0-2) 05/23/22 14:50 Urine WBC Too numerous to cnt /hpf (0-5) H 05/23/22 14:50 Ur Squamous Epith Cells 5-10 /hpf (0-5) H 05/23/22 14:50 Ur Transition Epith Cell 0-4 /hpf 05/23/22 14:50 Amorphous Sediment Not Reportable 05/23/22 14:50 Urine Bacteria 1+ /hpf (NONE) H 05/23/22 14:50 Discharge Plan Discharge Patient Disposition: Home Clinical Impression: Urinary tract infection due to ESBL Klebsiella Condition: Stable Prescriptions: No Action tacrolimus 1 mg capsule 1 mg PO Q12H prednisone 5 mg tablet 2.5 mg PO DAILY acyclovir 200 mg capsule 200 mg PO TID alendronate [Fosamax] 70 mg tablet 70 mg PO Q7D levothyroxine 25 mcg capsule 25 mcg PO DAILY metoprolol succinate 100 mg Tablet Extended Release 24 Hr 50 mg PO DAILY latanoprost 0.005 % Drops 1 drp OPHTHALMIC (EYE) QPM potassium chloride 10 mEq Capsule, Extended Release 10 meq PO DAILY zinc acetate 25 mg (zinc) Capsule 25 mg PO DAILY echinacea [Echinacea Plus] 400 mg Capsule 400 mg PO DAILY Rx Instructions: administer with meals glucosamine sulfate [Glucosamine] 500 mg Tablet 500 mg PO DAILY Rx Instructions: administer with a meal calcium carbonate-vitamin D3 [Calcium + D] 600 mg-5 mcg (200 unit) Tablet 1 tab PO BID sulfamethoxazole-trimethoprim 800-160 mg tablet See Rx Instructions .ROUTE .COMPLEX Rx Instructions: 1 tab po thursday- thursday- thursday aspirin [Aspir-81] 81 mg Tablet,Delayed Release (Dr/Ec) 81 mg PO DAILY ascorbic acid (vitamin C) [Vitamin C] 500 mg Tablet 500 mg PO DAILY candesartan 32 mg Tablet 16 mg PO BID magnesium 30 mg Tablet 30 mg PO DAILY rosuvastatin 20 mg Tablet 10 mg PO QPM cholecalciferol (vitamin D3) [Vitamin D3] 25 mcg (1,000 unit) Tablet 50 mcg PO DAILY Fish Oil 120-180-500 mg Capsule 1 cap PO DAILY Women's 50 Plus Multivitamin 400 mcg-500 mg calcium-20 mcg Tablet 1 tab PO DAILY Discharge Orders: Discharge ED (Routine); Ordered 05/23/22 Ordered By: Truong Galarza Referrals: Chiquita Farley FNP [Primary Care Provider] - Discharge Diet: Usual diet Discharge Activity: Resume usual activity Patient Instructions: Opioid Safety, Pain Management Activity Restrictions/Additional Instructions: Return to the emergency room daily for the next 2 days for daily single doses of antibiotics. Case management will make arrangements for you to have a PICC line next week and to do future doses of antibiotics for a total of 10 to 14 days in the outpatient GI Lab. business analyst manager will also make arrangements for you to follow-up with Dr. Lester. Coding Level of Care Code ED Cytogenetic Technician for Yuniel Berg
[2022-05-23 16:01] LABS: Basophils % 0.4 %; Eosinophils # 0.2 10^3/uL (0.0-0.8); Eosinophils % 1.8 %; Hematocrit 37.9 % (37.0-47.0); Hemoglobin 12.8 g/dL (11.5-15.3); Lymphocytes # 2.3 10^3/uL (0.8-4.8); Lymphocytes % 27.6 %; Mean Corpuscular HGB Conc 33.8 g/dL (30.0-36.0); Mean Corpuscular Hemoglobin 29.8 pg (28.0-34.0); Mean Corpuscular Volume 88.3 fl (81-99); Mean Platelet Volume 9.1 fL (7.4-10.4); Monocytes # 0.6 10^3/uL (0.2-0.9); Monocytes % 7.9 %; Neutrophils # 5.03 10^3/uL (1.8-7.7); Neutrophils % 61.8 %; Nucleated Red Blood Cells % 0 %; Platelet Count 252 10^3/cmm (130-400); Red Blood Count 4.29 10^6/uL (4.1-5.3); Red Cell Distribution Width 13.2 % (12.1-15.1); White Blood Count 8.1 10^3/uL (4.0-10.0)
[2022-05-23 16:24] VITALS: BP 136/87; PULSE 80; O2SAT 99
[2022-05-23 16:26] LABS: Add Urine Microscopic? YES; Bilirubin Urine Neg (Negative); Blood Urine 2+ (Negative); Glucose Urine UA Norm (Normal); Ketones Urine 1+ (Negative); Leukocyte Esterase Urine 2+ (Negative); Nitrate Urine Negative (Negative); Protein Urine Neg (Negative); Urine Appearance Hazy (CLEAR); Urine Color Yellow (Yellow); Urobilinogen Urine Norm (Negative); pH Urine 6 (5-7)
[2022-05-23 16:27] LABS: Add Urine Culture? Yes; Bacteria Urine 1+ /hpf; Transitional Epi Cells Urine 0-4 /hpf; WBC Urine TOO NUMEROUS TO CNT /hpf (0-5)
[2022-05-23 16:36] LABS: Anion Gap 14.8 (5-19); Blood Urea Nitrogen 19 mg/dL (8-23); Calcium 9.9 mg/dL (8.5-10.5); Carbon Dioxide 25 mmol/L (22-29); Chloride 94 mmol/L (98-107); Glucose 95 mg/dL (65-115); Osmolality Calculated 270 mOsm/kg (285-295); Potassium 4.8 mmol/L (3.5-5.1); Sodium 129 mmol/L (136-145)
[2022-05-23] MEDS: ertapenem 1,000 MG in sodium chloride 0.9% (plus) 100 ML 200 MG IV (17:40)
[2022-05-23 17:45] VITALS: BP 164/94; PULSE 77; O2SAT 98
[2022-05-23 18:23] VITALS: BP 118/82; PULSE 90; O2SAT 98
--- NOTE | 2022-05-26 10:18 | DCPLANNER ---
biodiesel operations manager had message to schedule a PICC line for patient and out patient antibiotics for patient. biodiesel operations manager spoke with Grazyna in the GI lab. biodiesel operations manager was told that patient has been scheduled for PICC line and outpatient antibiotics.
--- NOTE | 2022-05-26 16:21 | DCPLANNER ---
Addendum entered by Mandi Cordoba 06/26/22 07:24: Patient had a follow up appointment scheduled for 05.30.[address] Lester at urology - patient did attend appointment. Original Note: branch account manager had message to schedule a follow up appointment for patient with urology. branch account manager sent patients information to the front office staff at urology. Patients information will be printed and reviewed. Clinic will call patient with appointment information.
== END 2022-05-23 18:25 | disposition home or self-care (01) ==
PROVIDERS: Emergency Provider Family Medicine; PCP Nurse Practitioner
DX: N39.0 Urinary tract infection, site not specified (principal); B96.1 Klebsiella pneumoniae [K. pneumoniae] as the cause of diseases classified elsewhere; Z79.82 Long term (current) use of aspirin; Z94.1 Heart transplant status; Z87.891 Personal history of nicotine dependence
CPT/HCPCS: 36415; 80048; 81001; 85025; 87040; 87077; 87086; 87186; 96365; 99284; J1335

== ENCOUNTER 2022-06-02 08:30 | Outpatient (RCR) | payer OTHER, MEDICARE, SELFPAY ==
[2022-05-24 08:33] VITALS: BP 141/83; PULSE 86; RESP 18; TEMP 37.2; O2SAT 98
[2022-05-24] MEDS: ertapenem 1,000 MG in sodium chloride 0.9% (plus) 100 ML 200 MG IV (08:55)
--- NOTE | 2022-05-24 09:08 | SUR.PREOP ---
0835-Patient arrived with IV to her right forearm. IV would not flush or pull back blood return. IV was removed and new IV was started. Patient tolerated well.
[2022-05-25 08:35] VITALS: BP 140/93; PULSE 83; RESP 16; TEMP 36.7; O2SAT 100
[2022-05-25] MEDS: ertapenem 1,000 MG in sodium chloride 0.9% (plus) 100 ML 200 MG IV (08:45)
[2022-05-26 09:23] VITALS: BP 179/98; PULSE 83; RESP 18; TEMP 36.9; O2SAT 100
[2022-05-27 08:41] VITALS: BP 170/94; PULSE 84; RESP 18; TEMP 36.4; O2SAT 94
[2022-05-28 08:34] VITALS: BP 163/98; PULSE 85; RESP 18; TEMP 36.3; O2SAT 98
[2022-05-29 08:32] VITALS: BP 152/88; PULSE 82; RESP 18; TEMP 36.2; O2SAT 97
[2022-05-30 08:33] VITALS: BP 160/97; PULSE 70; RESP 18; TEMP 36.2; O2SAT 96
[2022-05-31 08:20] VITALS: BP 153/94; PULSE 73; RESP 16; TEMP 36.4; O2SAT 97
[2022-06-01 08:25] VITALS: BP 174/93; PULSE 70; RESP 18; TEMP 36.7; O2SAT 100
[2022-06-02 08:47] VITALS: BP 150/91; PULSE 77; RESP 18; TEMP 36.6; O2SAT 100
== END 2022-06-02 23:59 | disposition home or self-care (01) ==
LOC: GILAB 08:30
PROVIDERS: PCP Nurse Practitioner; Visit Provider Family Medicine
DX: N39.0 Urinary tract infection, site not specified (principal); B96.89 Other specified bacterial agents as the cause of diseases classified elsewhere
CPT/HCPCS: 36569; 51798; 81003; 96365; 99203; C1751; J1335

== ENCOUNTER 2022-06-05 07:00 | Outpatient (RCR) | payer OTHER, MEDICARE, SELFPAY ==
[2022-06-03 07:31] VITALS: BP 159/87; PULSE 82; RESP 18; TEMP 36.5; O2SAT 99
[2022-06-04 08:09] VITALS: BP 135/87; PULSE 80; RESP 18; TEMP 35.7; O2SAT 99
[2022-06-05 07:25] VITALS: BP 144/88; PULSE 87; RESP 18; TEMP 36; O2SAT 97
== END 2022-07-02 23:59 | disposition home or self-care (01) ==
LOC: GILAB 07:00
PROVIDERS: PCP Nurse Practitioner; Visit Provider Family Medicine
DX: N39.0 Urinary tract infection, site not specified (principal)
CPT/HCPCS: 96365; J1335

== ENCOUNTER → 2022-06-11 13:54 | Outpatient (BNVA) | payer OTHER, MEDICARE, SELFPAY | PROVIDERS: PCP Nurse Practitioner; Visit Provider Urology | DX: N39.0 Urinary tract infection, site not specified (principal); B96.89 Other specified bacterial agents as the cause of diseases classified elsewhere | CPT/HCPCS: 81003; 99213 ==

== ENCOUNTER 2022-08-05 08:21 | Outpatient (CLI) | payer MEDICARE, OTHER, SELFPAY ==
[2022-08-05 09:27] LABS: Basophils # 0.1 10^3/uL (0.0-0.1); Basophils % 0.7 %; Eosinophils # 0.3 10^3/uL (0.0-0.8); Eosinophils % 4.5 %; Hematocrit 42.1 % (37.0-47.0); Hemoglobin 13.9 g/dL (11.5-15.3); Lymphocytes # 2.2 10^3/uL (0.8-4.8); Lymphocytes % 31.7 %; Mean Corpuscular Hemoglobin 29.6 pg (28.0-34.0); Mean Corpuscular Volume 89.8 fl (81-99); Mean Platelet Volume 8.9 fL (7.4-10.4); Monocytes # 0.5 10^3/uL (0.2-0.9); Monocytes % 7.2 %; Neutrophils # 3.85 10^3/uL (1.8-7.7); Neutrophils % 55.8 %; Nucleated Red Blood Cells % 0 %; Platelet Count 306 10^3/cmm (130-400); Red Blood Count 4.69 10^6/uL (4.1-5.3); Red Cell Distribution Width 13.2 % (12.1-15.1); White Blood Count 6.9 10^3/uL (4.0-10.0)
[2022-08-05 09:49] LABS: Blood Urea Nitrogen 18 mg/dL (8-23); Calcium 9.7 mg/dL (8.5-10.5); Carbon Dioxide 28 mmol/L (22-29); Chloride 101 mmol/L (98-107); Glucose 87 mg/dL (65-115); Osmolality Calculated 283 mOsm/kg (285-295); Sodium 136 mmol/L (136-145)
[2022-08-05 09:51] LABS: Anion Gap 12.1 (5-19); Potassium 5.1 mmol/L (3.5-5.1)
== END 2022-08-05 08:22 | disposition home or self-care (01) ==
PROVIDERS: PCP Nurse Practitioner; Visit Provider Internal Medicine Cardiovascular Disease
DX: Z48.21 Encounter for aftercare following heart transplant (principal); Z94.1 Heart transplant status; Z79.899 Other long term (current) drug therapy; N28.9 Disorder of kidney and ureter, unspecified
CPT/HCPCS: 36415; 80048; 80197; 85025

== ENCOUNTER 2022-09-29 08:09 | Outpatient (CLI) | payer MEDICARE, OTHER, SELFPAY ==
[2022-09-29 09:21] LABS: Basophils % 0.4 %; Eosinophils # 0.5 10^3/uL (0.0-0.8); Eosinophils % 6.6 %; Hematocrit 44.2 % (37.0-47.0); Hemoglobin 14.1 g/dL (11.5-15.3); Lymphocytes # 2.5 10^3/uL (0.8-4.8); Mean Corpuscular HGB Conc 31.9 g/dL (30.0-36.0); Mean Corpuscular Volume 90.8 fl (81-99); Mean Platelet Volume 9.4 fL (7.4-10.4); Monocytes # 0.6 10^3/uL (0.2-0.9); Monocytes % 9.2 %; Neutrophils # 3.26 10^3/uL (1.8-7.7); Neutrophils % 47.5 %; Nucleated Red Blood Cells % 0 %; Platelet Count 221 10^3/cmm (130-400); Red Blood Count 4.87 10^6/uL (4.1-5.3); Red Cell Distribution Width 13.6 % (12.1-15.1); White Blood Count 6.9 10^3/uL (4.0-10.0)
[2022-09-29 09:40] LABS: Urine Appearance Clear (CLEAR); Urine Color Yellow (Yellow)
[2022-09-29 09:41] LABS: Bilirubin Urine Neg (Negative); Blood Urine Neg (Negative); Glucose Urine UA Norm (Normal); Ketones Urine Negative (Negative); Leukocyte Esterase Urine Negative (Negative); Nitrate Urine Negative (Negative); Protein Urine Neg (Negative); Specific Gravity, Urine 1.015 (1.005-1.030); Urobilinogen Urine Norm (Negative); pH Urine 6.5 (5-7)
[2022-09-29 09:42] LABS: Add Urine Culture? No; Bacteria Urine TRACE /hpf; Squamous Epithelial Cell Urine 15-25 /hpf (0-5)
[2022-09-29 10:00] LABS: Estmated Average Glucose 114; Hemoglobin A1C 5.6 % (4.0-6.0)
== END 2022-09-29 08:10 | disposition home or self-care (01) ==
PROVIDERS: PCP Nurse Practitioner; Visit Provider Internal Medicine Cardiovascular Disease
DX: Z48.298 Encounter for aftercare following other organ transplant (principal); Z79.899 Other long term (current) drug therapy; Z94.1 Heart transplant status
CPT/HCPCS: 80197; 81001; 83036; 85025

== ENCOUNTER 2022-10-14 08:23 | Outpatient (CLI) | payer MEDICARE, OTHER, SELFPAY ==
[2022-10-14 09:23] LABS: Creatine Phosphokinase 47 U/L (26-192)
== END 2022-10-14 08:24 | disposition home or self-care (01) ==
PROVIDERS: PCP Nurse Practitioner; Visit Provider Internal Medicine Cardiovascular Disease
DX: Z94.1 Heart transplant status (principal); Z79.899 Other long term (current) drug therapy
CPT/HCPCS: 36415; 82550

== ENCOUNTER → 2022-11-02 10:49 | Outpatient (BNVA) | payer MEDICARE, OTHER, SELFPAY | PROVIDERS: PCP Nurse Practitioner; Visit Provider Nurse Practitioner Family | DX: N39.0 Urinary tract infection, site not specified (principal); R39.9 Unspecified symptoms and signs involving the genitourinary system; R30.0 Dysuria | CPT/HCPCS: 81000; 87086; 87184 ==

== ENCOUNTER → 2022-12-01 15:06 | Outpatient (BNVA) | payer OTHER, SELFPAY | PROVIDERS: PCP Nurse Practitioner; Visit Provider Urology | DX: N39.0 Urinary tract infection, site not specified (principal); B96.89 Other specified bacterial agents as the cause of diseases classified elsewhere; Z79.2 Long term (current) use of antibiotics | CPT/HCPCS: 51798; 81003; 99213 ==

== ENCOUNTER 2022-12-23 08:22 | Outpatient (CLI) | payer MEDICARE, OTHER, SELFPAY ==
[2022-12-23 08:44] LABS: Basophils % 0.4 %; Eosinophils # 0.3 10^3/uL (0.0-0.8); Eosinophils % 4.6 %; Hematocrit 43.6 % (37.0-47.0); Hemoglobin 14.2 g/dL (11.5-15.3); Lymphocytes # 2.1 10^3/uL (0.8-4.8); Lymphocytes % 28.5 %; Mean Corpuscular HGB Conc 32.6 g/dL (30.0-36.0); Mean Corpuscular Hemoglobin 29.4 pg (28.0-34.0); Mean Corpuscular Volume 90.3 fl (81-99); Mean Platelet Volume 9.2 fL (7.4-10.4); Monocytes # 0.6 10^3/uL (0.2-0.9); Monocytes % 8.5 %; Neutrophils # 4.25 10^3/uL (1.8-7.7); Neutrophils % 57.7 %; Nucleated Red Blood Cells % 0 %; Platelet Count 216 10^3/cmm (130-400); Red Blood Count 4.83 10^6/uL (4.1-5.3); Red Cell Distribution Width 13.2 % (12.1-15.1); White Blood Count 7.4 10^3/uL (4.0-10.0)
[2022-12-23 09:01] LABS: Anion Gap 15.3 (5-19); Blood Urea Nitrogen 13 mg/dL (8-23); Calcium 9.7 mg/dL (8.5-10.5); Carbon Dioxide 27 mmol/L (22-29); Chloride 97 mmol/L (98-107); Glucose 90 mg/dL (65-115); Osmolality Calculated 280 mOsm/kg (285-295); Potassium 4.3 mmol/L (3.5-5.1); Sodium 135 mmol/L (136-145)
== END 2022-12-23 08:23 | disposition home or self-care (01) ==
LOC: LAB 08:27
PROVIDERS: PCP Nurse Practitioner; Visit Provider Internal Medicine Cardiovascular Disease
DX: Z48.21 Encounter for aftercare following heart transplant (principal); Z79.899 Other long term (current) drug therapy
CPT/HCPCS: 36415; 80048; 80197; 85025

== ENCOUNTER 2023-03-19 08:41 | Outpatient (CLI) | payer MEDICARE, OTHER, SELFPAY ==
--- NOTE | 2023-03-19 08:46 | MM_ITS ---
WS: [id number] BILATERAL SCREENING DIGITAL TOMOSYNTHESIS MAMMOGRAM WITH CAD HISTORY: SCREENING COMPARISON: 03/05/2022, 02/01/2020 Bilateral CC and MLO views with tomosynthesis and synthetic mammography submitted. Computer aided det ection analyzed. Breast composition: The breasts are heterogeneously dense, which may obscure small masses. No suspici ous masses, microcalcifications or architectural distortion. Asymmetries and calcifications within ea ch breast are stable over multiple prior exams. IMPRESSION: MM/[id number] BI-RADS: 2-Benign FOLLOW UP: 1 Year Follow-up
== END 2023-03-19 08:42 | disposition home or self-care (01) ==
LOC: RAD 08:42
PROVIDERS: PCP Nurse Practitioner; Visit Provider Nurse Practitioner
DX: Z12.31 Encounter for screening mammogram for malignant neoplasm of breast (principal)
CPT/HCPCS: 77063; 77067

== ENCOUNTER 2023-03-20 08:38 | Outpatient (CLI) | payer MEDICARE, OTHER, SELFPAY ==
[2023-03-20 09:00] LABS: Basophils # 0.1 10^3/uL (0.0-0.1); Basophils % 0.6 %; Eosinophils # 0.5 10^3/uL (0.0-0.8); Eosinophils % 5.8 %; Hematocrit 42.6 % (37.0-47.0); Hemoglobin 13.5 g/dL (11.5-15.3); Lymphocytes # 2.6 10^3/uL (0.8-4.8); Lymphocytes % 31.4 %; Mean Corpuscular HGB Conc 31.7 g/dL (30.0-36.0); Mean Corpuscular Hemoglobin 29.2 pg (28.0-34.0); Mean Corpuscular Volume 92.2 fl (81-99); Monocytes # 0.7 10^3/uL (0.2-0.9); Neutrophils # 4.29 10^3/uL (1.8-7.7); Nucleated Red Blood Cells % 0 %; Platelet Count 251 10^3/cmm (130-400); Red Blood Count 4.62 10^6/uL (4.1-5.3); Red Cell Distribution Width 14.1 % (12.1-15.1); White Blood Count 8.1 10^3/uL (4.0-10.0)
[2023-03-20 09:20] LABS: Anion Gap 10.4 (5-19); Blood Urea Nitrogen 21 mg/dL (8-23); Calcium 10.2 mg/dL (8.5-10.5); Carbon Dioxide 31 mmol/L (22-29); Chloride 101 mmol/L (98-107); Glucose 100 mg/dL (65-115); Osmolality Calculated 289 mOsm/kg (285-295); Potassium 4.4 mmol/L (3.5-5.1); Sodium 138 mmol/L (136-145)
== END 2023-03-20 08:39 | disposition home or self-care (01) ==
LOC: LAB 08:42
PROVIDERS: Visit Provider Internal Medicine Cardiovascular Disease
DX: Z94.1 Heart transplant status (principal); Z79.899 Other long term (current) drug therapy
CPT/HCPCS: 36415; 80048; 80197; 85025

== ENCOUNTER 2023-06-22 08:36 | Outpatient (CLI) | payer MEDICARE, OTHER, SELFPAY ==
[2023-06-22 09:12] LABS: Basophils % 0.3 %; Eosinophils # 0.3 10^3/uL (0.0-0.8); Eosinophils % 3.4 %; Hematocrit 43.4 % (36-47); Lymphocytes # 1.9 10^3/uL (0.8-4.8); Lymphocytes % 18.8 %; Mean Corpuscular HGB Conc 32.9 g/dL (30-55); Mean Corpuscular Hemoglobin 29.7 pg (27-33); Monocytes # 0.6 10^3/uL (0.2-0.9); Monocytes % 5.9 %; Neutrophils # 7.16 10^3/uL (1.8-7.7); Nucleated Red Blood Cells % 0 %; Platelet Count 232 10^3/cmm (157-399); Red Blood Count 4.82 10^6/uL (3.85-5.65); Red Cell Distribution Width 12.7 % (12.1-15.1); White Blood Count 10.09 10^3/uL (3.29-11.43)
[2023-06-22 09:59] LABS: Anion Gap 13.3 (5-19); Blood Urea Nitrogen 20 mg/dL (8-23); Calcium 10.1 mg/dL (8.5-10.5); Carbon Dioxide 30 mmol/L (22-29); Chloride 101 mmol/L (98-107); Glucose 95 mg/dL (65-115); Osmolality Calculated 292 mOsm/kg (285-295); Potassium 4.3 mmol/L (3.5-5.1); Sodium 140 mmol/L (136-145)
== END 2023-06-22 08:37 | disposition home or self-care (01) ==
PROVIDERS: PCP Nurse Practitioner; Visit Provider Internal Medicine Cardiovascular Disease
DX: Z79.899 Other long term (current) drug therapy (principal)
CPT/HCPCS: 36415; 80048; 80197; 85025

== ENCOUNTER → 2023-07-25 15:42 | Outpatient (BNVA) | payer MEDICARE, OTHER, SELFPAY | PROVIDERS: PCP Nurse Practitioner; Visit Provider Family Medicine | DX: R30.0 Dysuria (principal); N30.00 Acute cystitis without hematuria | CPT/HCPCS: 81000; 87086 ==

== ENCOUNTER 2023-09-09 08:13 | Outpatient (CLI) | payer MEDICARE, OTHER, SELFPAY ==
[2023-09-09 09:29] LABS: Basophils # 0.1 10^3/uL (0.0-0.1); Basophils % 0.8 %; Eosinophils # 0.6 10^3/uL (0.0-0.8); Eosinophils % 8.8 %; Hematocrit 44.3 % (36-47); Lymphocytes # 2.2 10^3/uL (0.8-4.8); Mean Corpuscular HGB Conc 33.2 g/dL (30-55); Mean Corpuscular Hemoglobin 29.2 pg (27-33); Mean Corpuscular Volume 87.9 fl (85-98); Mean Platelet Volume 9.4 fL (7.4-10.4); Monocytes # 0.6 10^3/uL (0.2-0.9); Monocytes % 8.6 %; Neutrophils # 3.04 10^3/uL (1.8-7.7); Neutrophils % 47.6 %; Nucleated Red Blood Cells % 0 %; Platelet Count 224 10^3/cmm (157-399); Red Blood Count 5.04 10^6/uL (3.85-5.65); Red Cell Distribution Width 13.5 % (12.1-15.1); White Blood Count 6.38 10^3/uL (3.29-11.43)
[2023-09-09 09:54] LABS: Anion Gap 12.5 (5-19); Blood Urea Nitrogen 21 mg/dL (8-23); Calcium 9.8 mg/dL (8.5-10.5); Carbon Dioxide 28 mmol/L (22-29); Chloride 95 mmol/L (98-107); Glucose 95 mg/dL (65-115); Osmolality Calculated 275 mOsm/kg (285-295); Potassium 4.5 mmol/L (3.5-5.1); Sodium 131 mmol/L (136-145)
== END 2023-09-09 08:14 | disposition home or self-care (01) ==
LOC: LAB 08:16
PROVIDERS: PCP Nurse Practitioner; Visit Provider Internal Medicine Cardiovascular Disease
DX: Z79.899 Other long term (current) drug therapy (principal); Z94.1 Heart transplant status
CPT/HCPCS: 36415; 80048; 80197; 85025

== ENCOUNTER 2023-10-09 09:52 | Outpatient (CLI) | payer MEDICARE, OTHER, SELFPAY ==
--- NOTE | 2023-10-09 10:06 | XR_ITS ---
WS: [id number] Chest 2 views, 10/09/2023 Clinical Data: PRE OP TESTING Comparison: Portable chest, 12/17/2021 Findings: There is stable right pleural reaction. No nodules, masses or effusions are seen. The heart is normal. The pulmonary vascularity is not increased. No pneumonia or pneumothorax is seen. Midline sternotomy sutures are present. The aortic arch shows calcification. There are surgical clips overly ing the T12 vertebra. Impression: 1. Stable right pleural reaction. 2. Atherosclerosis.
[2023-10-09 10:31] LABS: Basophils # 0.1 10^3/uL (0.0-0.1); Basophils % 0.6 %; Eosinophils # 0.4 10^3/uL (0.0-0.8); Eosinophils % 4.3 %; Hematocrit 44.4 % (36-47); Lymphocytes # 2.1 10^3/uL (0.8-4.8); Mean Corpuscular HGB Conc 32.2 g/dL (30-55); Mean Corpuscular Hemoglobin 28.8 pg (27-33); Mean Corpuscular Volume 89.3 fl (85-98); Mean Platelet Volume 8.9 fL (7.4-10.4); Monocytes # 0.7 10^3/uL (0.2-0.9); Monocytes % 8.4 %; Neutrophils # 5.45 10^3/uL (1.8-7.7); Neutrophils % 62.4 %; Nucleated Red Blood Cells % 0 %; Platelet Count 257 10^3/cmm (157-399); Red Blood Count 4.97 10^6/uL (3.85-5.65); Red Cell Distribution Width 13.3 % (12.1-15.1); White Blood Count 8.74 10^3/uL (3.29-11.43)
[2023-10-09 10:57] LABS: Anion Gap 15.3 (5-19); Blood Urea Nitrogen 14 mg/dL (8-23); Calcium 9.4 mg/dL (8.5-10.5); Carbon Dioxide 26 mmol/L (22-29); Chloride 99 mmol/L (98-107); Glucose 95 mg/dL (65-115); Osmolality Calculated 282 mOsm/kg (285-295); Potassium 4.3 mmol/L (3.5-5.1); Sodium 136 mmol/L (136-145)
--- NOTE | 2023-10-09 10:59 | ECG_ITS ---
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 Measurements Intervals [place] Rate: 84 P: 58 AR: 151 QRS: 60 QRSD: 97 T: 81 QT: 353 QTc: 420 Interpretive Statements SINUS RHYTHM WITH OCCASIONAL SUPRAVENTRICULAR PREMATURE COMPLEXES INCOMPLETE RIGHT BUNDLE BRANCH BLOCK [90+ ms QRS DURATION, TERMINAL R IN V1/V2, 40+ ms S IN I/aVL/V4/V5/V6] INTERPRETATION BASED ON A DEFAULT AGE OF 40 YEARS Compared to ECG 12/17/2021 09:18:22 Incomplete right bundle-branch block now present T-wave abnormality no longer present Electronically Signed On 10-09-2023 18:02:56 AIR TESTER by Raheel Bland M.D. [id number] f
== END 2023-10-09 09:53 | disposition home or self-care (01) ==
LOC: LAB 09:59
PROVIDERS: PCP Nurse Practitioner; Visit Provider Urology
DX: Z01.818 Encounter for other preprocedural examination (principal); N30.20 Other chronic cystitis without hematuria; Z94.1 Heart transplant status
CPT/HCPCS: 36415; 71046; 80048; 85025; 93005

== ENCOUNTER 2023-10-28 08:28 | Outpatient (CLI) | payer MEDICARE, OTHER, SELFPAY ==
[2023-10-28 09:03] LABS: Basophils % 0.3 %; Eosinophils # 0.4 10^3/uL (0.0-0.8); Eosinophils % 4.1 %; Hematocrit 43.2 % (36-47); Lymphocytes # 2.1 10^3/uL (0.8-4.8); Mean Corpuscular HGB Conc 32.2 g/dL (30-55); Mean Corpuscular Hemoglobin 29.4 pg (27-33); Mean Corpuscular Volume 91.3 fl (85-98); Mean Platelet Volume 8.8 fL (7.4-10.4); Monocytes # 0.7 10^3/uL (0.2-0.9); Monocytes % 7.4 %; Neutrophils # 5.81 10^3/uL (1.8-7.7); Neutrophils % 64.9 %; Nucleated Red Blood Cells % 0 %; Platelet Count 227 10^3/cmm (157-399); Red Blood Count 4.73 10^6/uL (3.85-5.65); Red Cell Distribution Width 12.9 % (12.1-15.1); White Blood Count 8.96 10^3/uL (3.29-11.43)
[2023-10-28 09:16] LABS: Alanine Aminotransferase 19 U/L (0-33); Albumin Level 4.1 g/dL (3.5-5.2); Alkaline Phosphatase 70 U/L (35-105); Anion Gap 11.9 (5-19); Aspartate Amino Transferase 21 U/L (0-32); Blood Urea Nitrogen 20 mg/dL (8-23); Calcium 9.8 mg/dL (8.5-10.5); Carbon Dioxide 29 mmol/L (22-29); Chloride 105 mmol/L (98-107); Chol HDL Ratio 1.94 mg/dL (0.0-4.40); Cholesterol 140 mg/dL (0-200); Creatine Phosphokinase 31 U/L (26-192); Globulin 2.4 g/dL (1.3-4.6); Glucose 85 mg/dL (65-115); HDL Cholesterol 72 mg/dL (60-100); LDL Cholesterol Calculated 50 mg/dL (50-129); LDL HDL Ratio 0.69 RATIO (0.00-3.22); Osmolality Calculated 296 mOsm/kg (285-295); Potassium 3.9 mmol/L (3.5-5.1); Sodium 142 mmol/L (136-145); Total Bilirubin 0.3 mg/dL (0.15-1.2); Total Protein 6.5 g/dL (6.6-8.7); Triglycerides 89 mg/dL (0-150)
[2023-10-28 09:17] LABS: Estmated Average Glucose 103; Hemoglobin A1C 5.2 % (4.0-6.0)
[2023-10-28 09:26] LABS: Bilirubin Urine Neg (Negative); Blood Urine 3+ (Negative); Glucose Urine UA Norm (Normal); Ketones Urine Negative (Negative); Nitrate Urine Negative (Negative); Protein Urine Neg (Negative); Specific Gravity, Urine 1.015 (1.005-1.030); Urine Appearance Clear (CLEAR); Urine Color Yellow (Yellow); Urobilinogen Urine Norm (Negative); pH Urine 6.5 (5-7)
[2023-10-28 09:27] LABS: Add Urine Microscopic? YES; Leukocyte Esterase Urine 2+ (Negative)
[2023-10-28 09:30] LABS: Add Urine Culture? Yes; Bacteria Urine TRACE /hpf; Hyaline Casts Urine 0-4 /lpf; RBC Urine 15-25 /hpf (0-2); Transitional Epi Cells Urine 0-4 /hpf
[2023-10-28 09:31] LABS: 25 Hydroxy Vitamin D 51 ng/mL (30-100)
== END 2023-10-28 08:29 | disposition home or self-care (01) ==
PROVIDERS: PCP Nurse Practitioner; Visit Provider Internal Medicine Cardiovascular Disease
DX: Z79.899 Other long term (current) drug therapy (principal); Z94.1 Heart transplant status; Z48.298 Encounter for aftercare following other organ transplant
CPT/HCPCS: 36415; 80053; 80061; 80197; 81001; 82306; 82550; 83036; 85025

== ENCOUNTER 2024-04-14 14:51 | Outpatient (CLI) | payer MEDICARE, OTHER, SELFPAY ==
--- NOTE | 2024-04-14 15:00 | MM_ITS ---
WS: [id number] BILATERAL SCREENING DIGITAL TOMOSYNTHESIS MAMMOGRAM WITH CAD HISTORY: SCREENING COMPARISON: 03/19/2023, 05/25/2017, 03/05/2022 Bilateral CC and MLO views with tomosynthesis and synthetic mammography submitted. Computer aided det ection analyzed. Breast composition: The breasts are heterogeneously dense, which may obscure small masses. No suspici ous masses, microcalcifications or architectural distortion. Scattered asymmetries and calcifications are stable. MM/[place] [id number] IMPRESSION: BI-RADS: 2 - Benign FOLLOW UP: 1 Year Follow-up
== END 2024-04-14 14:52 | disposition home or self-care (01) ==
LOC: RAD 14:52
PROVIDERS: PCP Nurse Practitioner; Visit Provider Nurse Practitioner
DX: Z12.31 Encounter for screening mammogram for malignant neoplasm of breast (principal); R92.333 Mammographic heterogeneous density, bilateral breasts; R92.1 Mammographic calcification found on diagnostic imaging of breast; N64.89 Other specified disorders of breast
CPT/HCPCS: 77063; 77067

== ENCOUNTER 2024-05-24 08:21 | Outpatient (CLI) | payer MEDICARE, OTHER, SELFPAY ==
[2024-05-24 09:04] LABS: Basophils % 0.3 %; Eosinophils # 0.4 10^3/uL (0.0-0.8); Eosinophils % 5.6 %; Hematocrit 40.6 % (36-47); Lymphocytes # 2.1 10^3/uL (0.8-4.8); Lymphocytes % 30.1 %; Mean Corpuscular Hemoglobin 30.3 pg (27-33); Mean Corpuscular Volume 91.9 fl (85-98); Mean Platelet Volume 8.9 fL (7.4-10.4); Monocytes # 0.5 10^3/uL (0.2-0.9); Monocytes % 7.6 %; Neutrophils # 3.89 10^3/uL (1.8-7.7); Neutrophils % 56.1 %; Nucleated Red Blood Cells % 0 %; Platelet Count 202 10^3/cmm (157-399); Red Blood Count 4.42 10^6/uL (3.85-5.65); White Blood Count 6.94 10^3/uL (3.29-11.43)
[2024-05-24 09:22] LABS: Blood Urea Nitrogen 16 mg/dL (8-23); Calcium 9.4 mg/dL (8.5-10.5); Carbon Dioxide 26 mmol/L (22-29); Chloride 101 mmol/L (98-107); Glucose 90 mg/dL (65-115); Osmolality Calculated 287 mOsm/kg (285-295); Sodium 138 mmol/L (136-145)
[2024-05-25 16:33] LABS: Tacrolimus, Highly Sensitive 6.6 mcg/L
== END 2024-05-24 08:22 | disposition home or self-care (01) ==
LOC: LAB 08:24
PROVIDERS: PCP Nurse Practitioner; Visit Provider Internal Medicine Cardiovascular Disease
DX: Z94.1 Heart transplant status (principal)
CPT/HCPCS: 36415; 80048; 80197; 85025

== ENCOUNTER 2024-12-13 07:47 | Outpatient (CLI) | payer MEDICARE, OTHER, SELFPAY ==
[2024-12-13 08:36] LABS: Basophils % 0.5 %; Eosinophils # 0.4 10^3/uL (0.0-0.8); Eosinophils % 4.8 %; Hematocrit 41.5 % (36-47); Lymphocytes # 2.3 10^3/uL (0.8-4.8); Lymphocytes % 29.7 %; Mean Corpuscular HGB Conc 32.5 g/dL (30-55); Mean Corpuscular Hemoglobin 29.6 pg (27-33); Mean Platelet Volume 8.8 fL (7.4-10.4); Monocytes # 0.7 10^3/uL (0.2-0.9); Monocytes % 9.4 %; Neutrophils # 4.29 10^3/uL (1.8-7.7); Neutrophils % 55.3 %; Nucleated Red Blood Cells % 0 %; Platelet Count 267 10^3/cmm (157-399); Red Blood Count 4.56 10^6/uL (3.85-5.65); Red Cell Distribution Width 13.2 % (12.1-15.1); White Blood Count 7.75 10^3/uL (3.29-11.43)
[2024-12-13 08:36] LABS: Bilirubin Urine Negative (Negative); Blood Urine Negative (Negative); Glucose Urine UA Negative (Normal); Ketones Urine Negative (Negative); Leukocyte Esterase Urine 1+ (Negative); Nitrate Urine Negative (Negative); Protein Urine Negative (Negative); Specific Gravity, Urine 1.016 (1.005-1.030); Urine Appearance Clear (CLEAR); Urine Color Yellow (Yellow); pH Urine 6.5 (5-7)
[2024-12-13 08:41] LABS: Add Urine Microscopic? YES; Bacteria Urine 1+ /hpf; Hyaline Casts Urine 0.81 /lpf; RBC Urine 0-2 /hpf (0-2)
[2024-12-13 08:52] LABS: Alanine Aminotransferase 16 U/L (0-33); Alkaline Phosphatase 59 U/L (35-105); Anion Gap 13.6 (5-19); Aspartate Amino Transferase 17 U/L (0-32); Blood Urea Nitrogen 23 mg/dL (8-23); Calcium 10.2 mg/dL (8.5-10.5); Carbon Dioxide 28 mmol/L (22-29); Chloride 98 mmol/L (98-107); Chol HDL Ratio 1.91 mg/dL (0.0-4.40); Cholesterol 143 mg/dL (0-200); Creatine Phosphokinase 25 U/L (26-192); Globulin 2.6 g/dL (1.3-4.6); Glucose 84 mg/dL (65-115); HDL Cholesterol 75 mg/dL (60-100); LDL Cholesterol Calculated 50 mg/dL (50-129); LDL HDL Ratio 0.67 RATIO (0.00-3.22); Osmolality Calculated 283 mOsm/kg (285-295); Potassium 4.6 mmol/L (3.5-5.1); Sodium 135 mmol/L (136-145); Total Bilirubin 0.2 mg/dL (0.15-1.2); Total Protein 6.6 g/dL (6.6-8.7); Triglycerides 88 mg/dL (0-150)
[2024-12-13 08:53] LABS: Estmated Average Glucose 108; Hemoglobin A1C 5.4 % (4.0-6.0)
[2024-12-13 09:07] LABS: 25 Hydroxy Vitamin D 47 ng/mL (30-100)
[2024-12-14 16:54] LABS: Tacrolimus, Highly Sensitive 5.5 mcg/L
== END 2024-12-13 07:48 | disposition home or self-care (01) ==
PROVIDERS: PCP Nurse Practitioner; Visit Provider Internal Medicine Cardiovascular Disease
DX: Z94.1 Heart transplant status (principal); Z79.899 Other long term (current) drug therapy; Z48.298 Encounter for aftercare following other organ transplant
CPT/HCPCS: 36415; 80053; 80061; 80197; 81001; 82306; 82550; 83036; 85025

== ENCOUNTER 2025-03-16 08:04 | Outpatient (CLI) | payer MEDICARE, OTHER, SELFPAY ==
[2025-03-16 08:43] LABS: Hematocrit 40.7 % (36-47); Hemoglobin 13.20 g/dL (11.27-16.99); Mean Corpuscular HGB Conc 32.4 g/dL (30-55); Mean Corpuscular Hemoglobin 28.7 pg (27-33); Mean Corpuscular Volume 88.5 fl (85-98); Nucleated Red Blood Cells % 0 %; Platelet Count 252 10^3/cmm (157-399); Red Blood Count 4.60 10^6/uL (3.85-5.65); White Blood Count 8.46 10^3/uL (3.29-11.43)
[2025-03-16 08:55] LABS: Anion Gap 12.6 (5-19); Blood Urea Nitrogen 16 mg/dL (8-23); Calcium 9.5 mg/dL (8.5-10.5); Carbon Dioxide 29 mmol/L (22-29); Chloride 102 mmol/L (98-107); Glucose 91 mg/dL (65-115); Osmolality Calculated 289 mOsm/kg (285-295); Potassium 4.6 mmol/L (3.5-5.1); Sodium 139 mmol/L (136-145)
[2025-03-17 16:19] LABS: Tacrolimus, Highly Sensitive 7.4 mcg/L
== END 2025-03-16 08:05 | disposition home or self-care (01) ==
PROVIDERS: PCP Nurse Practitioner; Visit Provider Internal Medicine Cardiovascular Disease
DX: Z94.1 Heart transplant status (principal)
CPT/HCPCS: 36415; 80048; 80197; 85025

== ENCOUNTER 2025-04-19 09:02 | Outpatient (CLI) | payer MEDICARE, OTHER, SELFPAY ==
--- NOTE | 2025-04-19 09:07 | MM_ITS ---
WS: [id number] BILATERAL SCREENING DIGITAL TOMOSYNTHESIS MAMMOGRAM WITH CAD HISTORY: SCREENING COMPARISON: 04/14/2024, 03/19/2023, 03/05/2022 Bilateral CC and MLO views with tomosynthesis and synthetic mammography submitted. Computer aided detection analyzed. Breast composition: The breasts are heterogeneously dense, which may obscure small masses. No suspicious masses, microcalcifications or architectural distortion. Benign coarse calcifications in each breast. Asymmetries are similar to multiple prior studies. No distortion. MM/MM scr tomosynthesis [id number] IMPRESSION: BI-RADS: 2 - Benign FOLLOW UP: 1 Year Follow-up
== END 2025-04-19 09:03 | disposition home or self-care (01) ==
LOC: RAD 09:03
PROVIDERS: PCP Nurse Practitioner; Visit Provider Nurse Practitioner
DX: Z12.31 Encounter for screening mammogram for malignant neoplasm of breast (principal); R92.333 Mammographic heterogeneous density, bilateral breasts; R92.1 Mammographic calcification found on diagnostic imaging of breast; N64.89 Other specified disorders of breast
CPT/HCPCS: 77063; 77067

== ENCOUNTER 2025-06-20 08:10 | Outpatient (CLI) | payer MEDICARE, OTHER, SELFPAY ==
[2025-06-20 08:35] LABS: Hematocrit 42.2 % (36-47); Hemoglobin 14.00 g/dL (11.27-16.99); Mean Corpuscular HGB Conc 33.2 g/dL (30-55); Mean Corpuscular Hemoglobin 28.8 pg (27-33); Mean Corpuscular Volume 86.8 fl (85-98); Nucleated Red Blood Cells % 0 %; Platelet Count 216 10^3/cmm (157-399); Red Blood Count 4.86 10^6/uL (3.85-5.65); White Blood Count 6.24 10^3/uL (3.29-11.43)
[2025-06-20 09:11] LABS: Alanine Aminotransferase 20 U/L (0-33); Albumin Level 4.6 g/dL (3.5-5.2); Alkaline Phosphatase 58 U/L (35-105); Anion Gap 9.4 (5-19); Aspartate Amino Transferase 21 U/L (0-32); Blood Urea Nitrogen 17 mg/dL (8-23); Calcium 10.1 mg/dL (8.5-10.5); Carbon Dioxide 33 mmol/L (22-29); Chloride 100 mmol/L (98-107); Globulin 2.5 g/dL (1.3-4.6); Glucose 99 mg/dL (65-115); Osmolality Calculated 288 mOsm/kg (285-295); Potassium 4.4 mmol/L (3.5-5.1); Sodium 138 mmol/L (136-145); Total Protein 7.1 g/dL (6.6-8.7)
[2025-06-22 10:30] LABS: Tacrolimus, Highly Sensitive 7.3 mcg/L
== END 2025-06-20 08:11 | disposition home or self-care (01) ==
LOC: LAB 06-23 06:33
PROVIDERS: PCP Nurse Practitioner; Visit Provider Internal Medicine Cardiovascular Disease
DX: Z94.1 Heart transplant status (principal)
CPT/HCPCS: 36415; 80053; 80197; 85025